=== PATIENT | male | born 1995 | race Caucasian/White ===

== ENCOUNTER 2017-06-15 19:02 | Emergency (ER) | payer BC, OTHER ==
[2017-06-15] MEDS ORDERED: Levofloxacin TAB* 500 MG PO ONE (20:44)
[2017-06-15] MEDS ORDERED: Ibuprofen TAB* 600 MG PO ONE (20:44)
[2017-06-15 20:58] VITALS: BP 140/50
--- NOTE | 2017-06-15 22:54 | UC ---
Jaz Bernard Edward, scribed for Donovan Javier MD on 06/15/17 at 2041 . Epistaxis Nasal HPI - HPI Summary HPI Summary: 21 y/o male presents to [facility] c/o gradual onset sinus pressure and congestion starting earlier today. Pt also c/o fever starting earlier today, 101.5 at triage. Associated sx: mild sore throat, back pain. Denies pain in neck, rash, urinary symptoms. PMHx sinus infections. - History of Current Complaint Chief Complaint: UCRespiratory Stated Complaint: SINUS PAIN,PRESSURE Time Seen by Provider: 06/15/17 20:35 Hx Obtained From: Patient Onset/Duration: Gradual Onset, Lasting Hours - Earlier today, Still Present Timing: Constant Associated Signs And Symptoms: Positive: Sinus Pain - Sinus pressure - Allergies/Home Medications Allergies/Adverse Reactions: Allergies Allergy/AdvReac Type Severity Reaction Status Date / Time Amoxicillin Allergy Intermediate Hives Verified 06/15/17 20:50 Azithromycin [From Zithromax] Allergy Intermediate Hives Verified 06/15/17 20:50 PMH/Surg Hx/FS Hx/Imm Hx - Additional Past Medical History Additional PMH: Negative: tuberculosis, diabetes Previously Healthy: No - Surgical History Surgical History: Yes Surgery Procedure, Year, and Place: baby teeth - Family History Known Family History: Positive: Hypertension - Mother - Social History Occupation: Student Lives: With Family Alcohol Use: None Substance Use Type: None Smoking Status (MU): Never Smoked Tobacco - Immunization History Vaccination Up to Date: Yes Review of Systems Constitutional: Fever Skin: Negative - No esquivel Eyes: Negative ENT: Sore Throat, Nasal Discharge - Yellow/brown, Sinus Congestion, Sinus Pain/ Tenderness - Sinus pressure Respiratory: Negative Cardiovascular: Negative Gastrointestinal: Negative Genitourinary: Negative Motor: Negative Neurovascular: Negative Musculoskeletal: Myalgia - Mild back pain Neurological: Negative Psychological: Negative All Other Systems Reviewed And Are Negative: Yes Physical Exam Triage Information Reviewed: Yes Vital Signs: Initial Vital Signs Temp 101.5 F 06/15/17 19:15 Pulse 79 06/15/17 19:15 Resp 16 06/15/17 19:15 BP 144/51 06/15/17 19:15 Pulse Ox 97 06/15/17 19:15 Vital Signs Reviewed: Yes - Additional Comments The patient is well-nourished in no acute distress and in no acute pain. The skin is warm and dry and skin color reflects adequate perfusion. HEENT: The head is normocephalic and atraumatic. The pupils are equal and reactive. The conjunctivae are clear and without drainage. Nares are patent and without drainage. Mouth reveals moist mucous membranes and the throat is without erythema and exudate. The external ears are intact. The ear canals are patent and without drainage. The tympanic membranes are intact. There is rhinorrhea and postnasal drip. Neck is supple with full range of motion and non-tender. There are no carotid bruits. There is no neck vein distension. Respiratory: Chest is non-tender. Lungs are clear to auscultation and breath sounds are symmetrical and equal. Cardiovascular: Hear is regular rate and rhythm. There is no murmur or rub auscultated. There is no peripheral edema and pulses are symmetrical and equal. Abdomen: The abdomen is soft and non-tender. There are normal bowel sounds heard in all four quadrants and there is no organomegaly palpated. Musculoskeletal: There is no back pain noted. Extremities are non-tender with full range of motion. There is good capillary refill. There is no peripheral edema or calf tenderness elicited. Neurological: Patient is alert and oriented to person, place and time. The patient has symmetrical motor strength in all four extremities. Cranial nerves are grossly intact. Deep tendon reflexes are symmetrical and equal in all four extremities. Psychiatric: The patient has an appropriate affect and does not exhibit any anxiety or depression. Epistaxis Nasal Course/Dx - Course Course Of Treatment: 21 y/o male presents to [facility] c/o gradual onset sinus pressure and congestion starting earlier today. Pt also c/o fever starting earlier today, 101.5 at triage. Associated sx: mild sore throat, back pain. Denies pain in neck, rash, urinary symptoms. PMHx sinus infections. Pt will be prescribed Levaquin and d/c home. - Differential Dx/Diagnosis Differential Diagnosis/HQI/PQRI: Other - bronchitis, sinusitis, uri Provider Diagnoses: Sinusitis Discharge - Discharge Plan Condition: Stable Disposition: HOME Prescriptions: Levofloxacin TAB* [Levaquin TAB*] 500 mg PO DAILY #9 tab Patient Education Materials: Sinusitis (ED) The documentation as recorded by the Jaz alonso Edward accurately reflects the service I personally performed and the decisions made by Yaya coffey Drew, MD.
== END 2017-06-15 20:55 | disposition home or self-care (01) ==
LOC: UCEAST 19:02
DX: J32.9 Chronic sinusitis, unspecified (principal); Z88.3 Allergy status to other anti-infective agents
CPT/HCPCS: 99212; A9270-GY; G0463